=== PATIENT | female | born 1995 | race Caucasian/White ===

== ENCOUNTER 2017-10-05 07:37 | Emergency (ER) | payer OTHER ==
[~2017-10-05] VITALS: Ht 167.6 cm; Wt 54.5 kg
[2017-10-05] MEDS ORDERED: ALPR0.255 PO (07:56)
[2017-10-05] MEDS ORDERED: NALOXONE HCL 1 MG/ML 2 ML SYG ONE (09:09)
[2017-10-05] MEDS ORDERED: NALOXONE HCL 1 MG/ML 2 ML SYG IVP ONE (09:10)
[2017-10-05 12:32] VITALS: BP 102/60
== END 2017-10-05 12:34 | disposition home or self-care (01) ==
LOC: EMS 07:39
DX: T40.1X1A Poisoning by heroin, accidental (unintentional), initial encounter (principal); T42.4X1A Poisoning by benzodiazepines, accidental (unintentional), initial encounter; F17.210 Nicotine dependence, cigarettes, uncomplicated
CPT/HCPCS: 96374; 99284; J2310